=== PATIENT | female | born 1960 | race Caucasian/White ===

== ENCOUNTER → 2017-02-17 | Outpatient (CLI) | payer BC ==
[2017-02-17 15:29] LABS: CALCIUM 9.5 mg/dL (8.7-10.7)
--- NOTE | 2017-02-17 16:33 | DI ---
PA /LATERAL CHEST X-RAY, 02/17/2017 3:14 PM : Clinical History: Kidney cancer. Previous Exam: 09/04/2016. There is no acute soft tissue or bony abnormality. No blastic or lytic bony lesions are identified. H eart size is normal. Lungs are clear. Mediastinal structures are normal. There are no pulmonary nodul es. There has been no interval change. Reading: Normal chest x-ray. There is no evidence of metastatic disease to the chest on these films.
--- NOTE | 2017-02-18 09:14 | DI ---
CT ABDOMEN SCAN WITH IV CONTRAST, 02/17/2017 3:14 PM : Clinical History: Kidney cancer. The patient is status post right nephrectomy. Previous Exam: 09/04/2016. Scans are performed from the lower lung bases through the liver and kidneys with IV contrast. 50 ml o f Isovue 300 was injected IV. No oral or rectal contrast was ordered. The lung bases are clear. The liver is normal. The patient is status post cholecystectomy. There is n o abnormality of the spleen, pancreas, and adrenal glands. The patient is status post right nephrecto my without evidence of a tumor mass in the right renal fossa. The left kidney is normal in appearance . There is no left hydronephrosis or hydroureter. No left renal or ureteral calculi are present. Ther e are no abnormal retrocrural or periaortic nodes. No ascites is present. READING: Status post right nephrectomy with no evidence of recurrence of tumor in the right renal fossa. The e xam is otherwise normal. CT PELVIS SCAN WITH IV CONTRAST, 02/17/2017 3:14 PM: Clinical History: See above. Previous Exam: 09/04/2016. Scans are performed from just superior to the umbilicus to the symphysis pubis with IV contrast. This is the same bolus of contrast used for the CT scans of the abdomen. Scans through the lower abdomen and pelvis show no masses or abnormal fluid collections. There is no adenopathy. The appendix is normal. The small bowel, terminal ileum, and ileocecal valve are normal. The colon is also normal. There are no hernias. The patient is status post hysterectomy and bilateral salpingo-oophorectomy. No blastic or lytic bony changes are seen in the pelvis or hips or in the spi ne from T11 to the coccyx. No abnormalities are seen in the 10th through 12th ribs bilaterally. READING: Normal CT scan of the pelvis.
== END ==
LOC: LAB 15:07
PROVIDERS: ATTEND Urology
DX: C64.1 Malignant neoplasm of right kidney, except renal pelvis (principal); Z90.5 Acquired absence of kidney; Z98.890 Other specified postprocedural states
CPT/HCPCS: 36415; 71020; 74177; 80048

== ENCOUNTER 2017-09-03 07:11 | Observation (INO) ==
[~2017-09-03 07:11] MED LIST: CefOXitin Inj 2 GM in Sodium Chloride 0.9% 100 ML IV ONE; Clindamycin 900mg (Premix) 900 MG/50 ML BAG IV ONE; LIDOCAINE W/ SODIUM BICARB 0.5 ML SYR ONE; LIDOCAINE W/ SODIUM BICARB 0.5 ML SYR SUBD ONE; Lactated Ringers 1,000 ML PRIMARY IV ONE
[2017-09-03 07:38] LABS: BILIRUBIN,URINE NEGATIVE (NEG); CLARITY,URINE CLEAR (CLEAR); COLOR,URINE YELLOW (Y); GLUCOSE, URINE (UA) NEGATIVE (NEG); NITRATE,URINE NEGATIVE (NEG); OCCULT BLOOD,URINE SMALL (NEG); PROTEIN,URINE NEGATIVE (NEG); UROBILINOGEN,URINE 0.2 EU/dL (0.2)
[2017-09-03 07:45] LABS: BACTERIA,URINE FEW; SQUAMOUS EPITHELIAL CELL,UR RARE; URINE SAMPLE TYPE CLEAN CATCH URINE
[2017-09-03 07:46] LABS: URINE CASTS FEW
[2017-09-03] MEDS: Lactated Ringers 1,000 ML PRIMARY IV SCH ×3 (07:48→17:12)
[2017-09-03] MEDS ORDERED: ROCURONIUM 10 MG/1 ML - 5 ML VIAL IVP ONE ×2 (10:36→12:10)
[2017-09-03] MEDS ORDERED: PROPOFOL 10 MG/1 ML (200 MG/20 ML) VIAL IV ONE (10:37)
[2017-09-03] MEDS ORDERED: fentaNYL Inj 250 MCG/5 ML VIAL ONE (10:37)
[2017-09-03] MEDS ORDERED: LIDOCAINE MPF 2% - 5 ML (20 MG/1 ML) ONE (10:37)
[2017-09-03] MEDS ORDERED: MIDAZOLAM 5 MG/1 ML ONE (10:37)
[2017-09-03] MEDS ORDERED: LIDOCAINE HCL 2 % 10 ML JELLY URO-JECT TOPICAL ONE ×2 (10:45→11:28)
[2017-09-03] MEDS ORDERED: BUPIVACAINE 0.25% W/ EPI - 10 ML VIAL ONE (10:45)
[2017-09-03] MEDS ORDERED: KETAMINE 100 MG/1 ML - 5 ML ONE (11:32)
[2017-09-03] MEDS ORDERED: Lactated Ringers 1,000 ML PRIMARY IV ONE ×2 (12:24→12:29)
[2017-09-03] MEDS ORDERED: HYDROmorphone 2 MG/1 ML ONE (12:25)
[2017-09-03] MEDS ORDERED: Indigotindisulfonate Inj 40mg/5ml amp ONE (14:11)
[2017-09-03] MEDS ORDERED: Opium-Belladonna 30-16.2mg 1 EACH SUPP.RECT RECTAL ONE ×2 (14:26→14:28)
[2017-09-03] MEDS ORDERED: SUGAMMADEX SODIUM 200 MG/2 ML VIAL IV ONE (14:40)
[2017-09-03] MEDS ORDERED: ONDANSETRON 4 MG/2 ML VIAL ONE (14:47)
--- NOTE | 2017-09-03 15:02 | OB.OP.NOTE ---
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 Normal tubes and ovaries. The left ovary was densely adherred to the pelvic sidewall. The appendix, bowel, and pelvic peritoneum appeared normal with no visible evidence of bowel, bladder, or ureter injury. At cystoscopy, the left ureter ejected indigo carmine stained urine indicating patency and function. The right ureter was seen peristalsing in the retroperitoneum, but no spill into the bladder was seen, c/w her previous right nephrectomy. Good placement of the Y mesh implant and TVT mesh without tension was noted. Indications for the Procedure: Symptomatic pelvic relaxation with large rectocele and KARL. Pt. desired removal of her ovaries during the procedure. Description of Procedure: See dictated operative report. Plan: Overnight observation and discharge to home in the morning.
[2017-09-03] MEDS ORDERED: NORMAL SALINE 10 ML SYRINGE FLUSH IVP PRN ×2 (15:25→16:13)
[2017-09-03] MEDS ORDERED: HYDROmorphone 2 MG/1 ML IVP PRN (15:25)
[2017-09-03] MEDS ORDERED: fentaNYL Inj 100 MCG/2 ML VIAL IVP PRN (15:25)
[2017-09-03] MEDS ORDERED: Acetaminophen 1000mg Inj 1,000 MG/100 ML VIAL IV ONE (15:28)
[2017-09-03] MEDS ORDERED: Lactated Ringers 1,000 ML PRIMARY IV SCH (15:30)
--- NOTE | 2017-09-03 15:32 | CRNA.PROGR ---
Anesthesia Time - - Start date: 09/03/17 End date: 09/03/17 - Procedure/Recovery Time Anesthesia : Time In: 11:04 Anesthesia : Time Out: 15:09 Anesthesia : Total Time: 245 - Total Anesthesia Time Total Anesthesia Time (minutes): 245 - Other Weight: 55.792 kg Height: 5 ft 2 in Body Mass Index (BMI): 22.4 Physical Status: P2 Anesthesia Type: General Anesthesia : ET (Davinci sacrocolpopexy with TVT and BSO)
--- NOTE | 2017-09-03 15:32 | CRNA.PROGR ---
Anesthesia Recovery Phase I - Post Anesthesia Evaluation Patient's Condition on Arrival in Phase I: Stable Pain Level: 0
[2017-09-03] MEDS ORDERED: Ondansetron ODT Tab 8 MG TAB PO PRN (16:13)
[2017-09-03] MEDS ORDERED: IBUPROFEN 800 MG TABLET PO PRN (16:13)
[2017-09-03] MEDS ORDERED: HYDROcodone-APAP 5 MG -325 MG TABLET PO PRN (16:13)
--- NOTE | 2017-09-03 16:19 | OB.OP.NOTE ---
Operative Report Surgeon: Ryan Pediatric Assistant: Parvez Portillo MD Anesthesia Type: General Anesthesia Provider: Ashkan Gaming CRNA Surgery Date: 09/03/17 Preoperative Diagnosis: SPR/KARL Postoperative Diagnosis: Same Procedure: Robotic Sacral Colpopexy/BSO/TVT-O/Cystoscopy Estimated Blood Loss (mL): 50 Fluids: 2500 ml Complications: None Findings at Surgery: See dictated operative report Indications for the Procedure: SPR/KARL Description of Procedure: See dictated operative report. Plan: Overnight observation and discharge to home.
[2017-09-03] MEDS ORDERED: Pneumococcal Vacc 13 Syringe 0.5 ML DISP.SYRIN IM ONE (16:37)
[2017-09-03] MEDS: KETOROLAC 15 MG/1 ML VIAL IVP PRN ×2 (17:35→23:00)
[2017-09-03] MEDS: DOCUSATE 100 MG CAPSULE PO SCH (20:58)
[2017-09-04] MEDS: ACETAMINOPHEN 325 MG TABLET PO PRN ×2 (01:10→04:40)
[2017-09-04] MEDS: Lactated Ringers 1,000 ML PRIMARY IV SCH (01:11)
[2017-09-04] MEDS ORDERED: Pneumococcal Vacc 13 Syringe 0.5 ML DISP.SYRIN IM ONE (02:39)
[2017-09-04 04:38] VITALS: TEMP 98.6
[2017-09-04] MEDS: KETOROLAC 15 MG/1 ML VIAL IVP PRN (07:49)
[2017-09-04] MEDS: DOCUSATE 100 MG CAPSULE PO SCH (08:32)
[2017-09-04 08:47] VITALS: BP 102/46; RESP 20; O2SAT 92
--- NOTE | 2017-09-04 09:39 | PDOC(PROG) ---
Subjective Post Op Day: 1 Pain Management: PO Rock Catheter: No Flatus: Yes Diet: Regular Ambulating: Yes Concerns / Additional Information: Margret is feeling well this AM. She was able to empty her bladder after some delay. She is ready to go home. Assesstment / Plan Assessment / Plan: POD 1, doing well. Discharge to home.
--- NOTE | 2017-09-04 09:40 | DCSUMMARY ---
Hospitalization Summary Admit Date: 09/03/17 Discharge Date: 09/04/17 Primary Diagnosis:: SPR Hospital Course: The patient was taken to the OR for a robotic sacral colpopexy/BSO/TVT-O which was accomplished without complication. She was observed overnight and discharged to home on POD 1 in good condition to f/u in 2 weeks. Exam - Vitals Vital Signs: Vital Signs Temperature 98.6 F Temperature Source Temporal Artery Scan Pulse Rate [Pulse Oximeter] 70 Pulse Rate 85 Respiratory Rate 20 Blood Pressure [Left Arm] 102/46 Blood Pressure 130/81 Pulse Ox 92 Oxygen Flow Rate 1 Oxygen Delivery Method Room Air Height 5 ft 2 in Weight 132 lb 12.8 oz
== END 2017-09-04 11:22 | disposition home or self-care (01) ==
LOC: OR 07:11 → MED/SURG 07:11 → OPS 07:11 → MED/SURG 15:51 → EDSTATUS 17:25
PROVIDERS: ADMIT Obstetrics & Gynecology; ATTEND Obstetrics & Gynecology